=== PATIENT | female | born 1980 | race Caucasian/White ===

== ENCOUNTER 2016-11-30 08:47 | Emergency (ER) | payer OTHER ==
[2016-11-30 08:57] VITALS: BP 140/90
--- NOTE | 2016-11-30 09:21 | EDM.PDOC ---
ED HPI GENERAL MEDICAL PROBLEM - General Chief Complaint: Chest Pain Stated Complaint: CHEST PAIN Time Seen by Provider: 11/30/16 08:59 Source of Information: Reports: Patient History Limitations: Reports: No Limitations - History of Present Illness INITIAL COMMENTS - FREE TEXT/NARRATIVE: The patient presents with chest pressure. This has been going on for a few weeks. It is in the mid to upper chest. It was worse yesterday and now today. She has been having upper respiratory symptoms through the summer. She had bronchitis a couple times. She has a cough currently. She says the pain is worse with flexion at her neck. She has no shortness of breath. At times she has wheezing. She has used an albuterol inhaler this summer. She denies any past medical history such as diabetes, hypertension, hypercholesterolemia and coronary artery disease. She is not sure it this could be allergy related. She does not smoke. Onset: Gradual Duration: Week(s): (2 worse since yesterday) Location: Reports: Chest Quality: Reports: Pressure Severity: Moderate Improves with: Reports: None Worsens with: Reports: None Associated Symptoms: Reports: Chest Pain, Cough. Denies: Fever/Chills, Nausea/ Vomiting, Shortness of Breath Chest Pain Score (Numeric/FACES): 5 - Related Data Allergies Allergy/AdvReac Type Severity Reaction Status Date / Time No Known Allergies Allergy Verified 11/30/16 08:57 Home Meds: Home Meds Loratadine/Pseudoephedrine [Claritin-D 24 Hour Tablet] 1 each PO DAILY #30 tab.er.24h 11/30/16 [Rx] Past Medical History - Past Health History Medical/Surgical History: Denies Medical/Surgical History Respiratory History: Reports: Bronchitis, Recurrent - Past Surgical History Musculoskeletal Surgical History: Reports: Arthroscopic Knee Social & Family History - Family History Family Medical History: Noncontributory - Tobacco Use Smoking Status *Q: Never Smoker - Recreational Drug Use Recreational Drug Use: No ED ROS GENERAL - Review of Systems Review Of Systems: See Below Constitutional: Reports: No Symptoms HEENT: Reports: No Symptoms Respiratory: Reports: Wheezing (at times), Cough. Denies: Shortness of Breath Cardiovascular: Reports: Chest Pain Endocrine: Reports: No Symptoms GI/Abdominal: Reports: No Symptoms : Reports: No Symptoms Musculoskeletal: Reports: No Symptoms Skin: Reports: No Symptoms ED EXAM, GENERAL - Physical Exam Exam: See Below Exam Limited By: No Limitations General Appearance: Alert, No Apparent Distress Ears: Normal External Exam Nose: Normal Inspection Head: Atraumatic, Normocephalic Neck: Normal Inspection Respiratory/Chest: No Respiratory Distress, Wheezing (Mild to the left upper chest that cleared with deep breathing) Cardiovascular: Regular Rate, Rhythm, No Edema, No Murmur GI/Abdominal: Soft, Non-Tender, No Organomegaly, No Mass Back Exam: Normal Inspection Extremities: Normal Inspection Neurological: Alert, Oriented, No Motor/Sensory Deficits EKG INTERPRETATION EKG Date: 11/30/16 Time: 09:18 Rhythm: NSR Rate (Beats/Min): 74 Slaughters: Normal P-Wave: Present QRS: Normal ST-T: Normal QT: Normal Course - Vital Signs Last Recorded V/S: Last Vital Signs Temp 96.9 F 11/30/16 08:52 Pulse 86 11/30/16 08:52 Resp 18 11/30/16 08:52 BP 140/90 11/30/16 08:52 Pulse Ox 100 11/30/16 08:52 - Orders/Labs/Meds Orders: Active Orders 24 hr Category Date Time Status Cardiac Monitoring [RC] . DIRECTED Care 11/30/16 09:12 Active EKG Documentation Completion [RC] STAT Care 11/30/16 09:12 Active Chest 2V [CR] Stat Exams 11/30/16 09:12 Taken Labs: Laboratory Tests 11/30/16 11/30/16 11/30/16 Range/Units 09:45 09:45 09:45 WBC 7.19 (3.98-10.04) K/mm3 RBC 5.09 (3.98-5.22) M/mm3 Hgb 15.0 (11.2-15.7) gm/L Hct 42.9 (34.1-44.9) % MCV 84.3 (79.4-94.8) fl MCH 29.5 (25.6-32.2) pg MCHC 35.0 (32.2-35.5) g/dl RDW Std Deviation 39.0 (36.4-46.3) fL Plt Count 214 (182-369) K/mm3 MPV 9.9 (9.4-12.3) fl Neut % (Auto) 61.7 (34.0-71.1) % Lymph % (Auto) 26.7 (19.3-51.7) % [place] % (Auto) 6.3 (4.7-12.5) % Eos % (Auto) 4.7 (0.7-5.8) Baso % (Auto) 0.3 (0.1-1.2) % Neut # (Auto) 4.44 (1.56-6.13) K/mm3 Lymph # (Auto) 1.92 (1.18-3.74) K/mm3 [place] # (Auto) 0.45 H (0.24-0.36) K/mm3 Eos # (Auto) 0.34 (0.04-0.36) K/mm3 Baso # (Auto) 0.02 (0.01-0.08) K/mm3 D-Dimer, Quantitative 0.24 (0.19-0.59) mg/L Sodium 138 (136-145) mEq/L Potassium 4.0 (3.5-5.1) mEq/L Chloride 103 (98-107) mEq/L Carbon Dioxide 26 (21-32) mEq/L Anion Gap 13.0 (5-15) BUN 9 (7-18) mg/dL Creatinine 0.7 (0.55-1.02) mg/dL Est Cr Clr Drug Dosing 113.88 mL/min Estimated GFR (MDRD) > 60 (>60) mL/min BUN/Creatinine Ratio 12.9 L (14-18) Glucose 102 (74-106) mg/dL Calcium 8.8 (8.5-10.1) mg/dL Total Bilirubin 0.9 (0.2-1.0) mg/dL AST 20 (15-37) U/L ALT 25 (14-59) U/L Alkaline Phosphatase 53 (46-116) U/L Troponin I < 0.017 (0.00-0.056) ng/mL Total Protein 7.3 (6.4-8.2) g/dl Albumin 3.5 (3.4-5.0) g/dl Globulin 3.8 gm/dL Albumin/Globulin Ratio 0.9 L (1-2) - Re-Assessments/Exams Free Text/Narrative Re-Assessment/Exam: 11/30/16 09:41 I ordered an EKG, CXR and labs. Her EKG shows a NSR with no acute changes. 11/30/16 10:42 Her EKG shows a NSR with no acute changes. Her CXR looks good. Her CBC and CMP look good. Her troponin is negative. Her D-dimer is negative. I feel this is allergy related. I will order her some claritin D 24 hour. Departure - Departure Time of Disposition: 10:45 Disposition: Home, Self-Care 01 Condition: Good Clinical Impression: Atypical chest pain Seasonal allergies Qualifiers: Chronicity: acute Allergic rhinitis trigger: other Qualified Code(s): J30.2 - Other seasonal allergic rhinitis Prescriptions: Loratadine/Pseudoephedrine [Claritin-D 24 Hour Tablet] 1 each PO DAILY #30 tab.er.24h Referrals: Jacqui Mckenna, [facility] [Primary Care Provider] - Forms: ED Department Discharge Additional Instructions: Try the claritin D 24 hour for a few weeks. Follow up with Jacqui Mckenna or another provider if you do not feel better in a couple of weeks. Please return if you are worse such as more chest pain or any shortness of breath. - My Orders Last 24 Hours: My Active Orders 11/30/16 09:12 Cardiac Monitoring [RC] . DIRECTED EKG Documentation Completion [RC] STAT Chest 2V [CR] Stat - Assessment/Plan Last 24 Hours: My Active Orders 11/30/16 09:12 Cardiac Monitoring [RC] . DIRECTED EKG Documentation Completion [RC] STAT Chest 2V [CR] Stat
--- NOTE | 2016-11-30 12:14 | CR ---
Chest: Two views of the chest were obtained. Comparison: Prior chest x-ray of 05/13/12. Heart size and mediastinum are normal. Lungs are clear. Bony structures are within normal limits. Impression: 1. Nothing acute is identified on two-view chest x-ray. Diagnostic code #1
== END 2016-11-30 11:53 | disposition home or self-care (01) ==
LOC: JD.ED 08:47
DX: R07.89 Other chest pain (principal); J30.2 Other seasonal allergic rhinitis; Z79.899 Other long term (current) drug therapy
CPT/HCPCS: 36415; 71020; 71020-26; 80053; 84484; 85025; 85379; 93005; 99284; 99285-25